=== PATIENT | female | born 1940 | race Caucasian/White ===

== ENCOUNTER 2018-07-10 16:56 | Emergency (ER) | payer MEDICARE ==
[~2018-07-10] VITALS: Ht 167.6 cm; Wt 79.0 kg
[~2018-07-10 16:56] MED LIST: BENADRYL 50MG C50 MG PO; CIPROFLOXACN500 MG PO; MEDDOSEPAK PO; PEPCID20 MG PO
[2018-07-10] MEDS ORDERED: BACTROBAN TOP (18:23)
[2018-07-10] MEDS ORDERED: METRONIDAZOL500 MG PO (18:23)
[2018-07-10] MEDS ORDERED: DOXYCYCLINE100 MG PO (18:23)
[2018-07-10 18:30] VITALS: BP 163/87
== END 2018-07-10 18:30 | disposition home or self-care (01) ==
LOC: ED 16:56
PROC: 0HQNXZZ Repair Left Foot Skin, External Approach (ICD-10-PCS; principal; 2018-07-10)
DX: S91.312A Laceration without foreign body, left foot, initial encounter (principal); W54.0XXA Bitten by dog, initial encounter; Y92.89 Other specified places as the place of occurrence of the external cause; Y93.89 Activity, other specified

== ENCOUNTER 2018-07-13 11:55 | Inpatient (IN) | payer MEDICARE ==
[~2018-07-13] VITALS: Ht 165.1 cm; Wt 78.6 kg
[~2018-07-13 11:55] MED LIST changes: +BACTROBAN TOP; +DOXYCYCLINE100 MG PO; +METRONIDAZOL500 MG PO
--- NOTE | 2018-07-13 12:16 | NUR ---
PT TO ROOM VIA WHEELCHAIR.
--- NOTE | 2018-07-13 12:17 | NUR ---
MLP at bedside to examine pt
--- NOTE | 2018-07-13 12:20 | NUR ---
EDP at bedside to examine pt
--- NOTE | 2018-07-13 12:24 | NUR ---
2 sutures removed by EDP and MLP. Pt tolerated well.
--- NOTE | 2018-07-13 12:25 | NUR ---
REPORT PROVIDED TO KATHLEEN LABOY. CARE RELINQUISHED.
--- NOTE | 2018-07-13 12:25 | NUR ---
Pt updated on POC including being moved to another room d/t higher level of care. Showed understanding. Call nur within reach.
--- NOTE | 2018-07-13 12:30 | NUR ---
Pt to remain in room # 2 per charge nurse. Tech advised to place pt on playground monitor d/t elevated BP. Report given to KATHLEEN Schwartz. Care relinquished at this time.
--- NOTE | 2018-07-13 12:57 | NUR ---
IV ABT INFUSING TO SITE AT [facility]. SITE HEALTHY. PT AWARE OF CURRENT POC.
--- NOTE | 2018-07-13 13:28 | NUR ---
IV ABT CONTINUES. PT ADVISED OF CONTINUED WAIT TIME.
[2018-07-13 13:30] LABS: HEMOGLOBIN 13.6 g/dl (12.0-16.0); MEAN CELL VOLUME 90.3 fL CALC (80.0-100.0); MEAN CORPUSCULAR HGB 28.6 pG CALC (26.0-32.0); MEAN CORPUSCULAR HGB CONC 31.6 g/L CALC (32.0-36.0); RED BLOOD COUNT 4.76 mill/uL (4.20-5.60); RED CELL DISTRI WIDTH 13.9 % (11.5-15.5)
[2018-07-13 13:31] LABS: ANION GAP 14 (6-22 (CALC)); BUN 18 mg/dL (8-23); BUN/CREATININE RATIO 20 (12-20 (CALC)); CARBON DIOXIDE 24 mmol/l (22-30); CHLORIDE 106 mmol/l (95-108); CREATININE 0.9 mg/dL (0.5-1.0); GFR > 60 ML/MIN (>=60 (CALC)); GFR FOR AFR.AMER. > 60 ML/MIN (>=60 (CALC)); NEUT# 5.56 thou/uL (2.00-7.15); POTASSIUM 4.3 mmol/l (3.5-5.1); SODIUM 140 mmol/l (137-146)
[2018-07-13 13:32] LABS: ALBUMIN 4.4 g/dL (3.2-5.0); ALKALINE PHOSPHATASE 75 u/l (38-126); BILIRUBIN, TOTAL 0.4 mg/dL (0.0-1.4); SGOT/AST 20 u/l (9-36); TOTAL PROTEIN 7.1 g/dL (6.3-8.2)
--- NOTE | 2018-07-13 14:48 | NUR ---
PT RESTING , OFFERS NO NEW COMPLAINTS, AWARE OF PENDING ADMISSION, CALL DANIEL WITHIN REACH, MD AWARE OF B/P
--- NOTE | 2018-07-13 15:22 | NUR ---
DECVLINED MORPHINE STATING PAIN IS NOT THAT BAD, REQUESTED SOMETHING MILDER, NOTIFIED NEW ORDERS REC'D AND MEDICATED ORDERED
--- NOTE | 2018-07-13 15:40 | NUR ---
Attempted to call report to [facility]. Silvia byrd she is unavailable at this time and will return call for report
--- NOTE | 2018-07-13 15:45 | NUR ---
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
--- NOTE | 2018-07-13 16:10 | NUR ---
PER VERBAL ORDER , LEFT FOOT WOUND COVERED WITH NON ADHERENT DRSG ADN SECURED WITH ASUNCION AND TAPE, PT TOLERATED W/O INCIDENT,
--- NOTE | 2018-07-13 16:20 | NUR ---
Pt to MS at this time.
--- NOTE | 2018-07-13 16:25 | NUR ---
PT CAME FROM ER. 1X PERSON ASSIST TO SCALE AND THEN TO BED. VS OBTAIN. SAFETY PRECAUTIONS REINFORCED AND CALL LIGHT IN REACH.
[2018-07-13 16:27] VITALS: BP 151/68
--- NOTE | 2018-07-13 18:22 | NUR ---
ASSESSMENT DONE .PT IS A&O X3. PT STATED PAIN IN LEFT FOOT 06/03 DENIES PAIN MEDICATION. LEFT FOOT REDNESS AND WARM TO THE TOUCH. PICTURE TAKEN. RESPS EVEN AND UNLABORED. CALL LIGHT IN REACH.
[2018-07-13 19:27] VITALS: BP 149/76
--- NOTE | 2018-07-13 19:30 | NUR ---
PATIENT RESTING IN BED AT THIS TIME-AWAKE ALERT AND ORIENTEDX3. PATIENT WITH NO COMPLAINTS AT THIS TIME. DRESSING TO LEFT FOOT CDI AT THIS TIME. LEFT FOOT ELEVATED ON PILLOW. SALINE LOCK TO LEFT AC INTACT AND APPEARS HEALTHY AT THIS TIME. SAFETY PRECAUTIONS REINFORCED. CALL LIGHT IN REACH. WILL CONT TO MONITOR.
--- NOTE | 2018-07-14 | NUR ---
PATIENT RESTING IN BED. ANTIBIOTICS HAVE BEEN GIVEN. LEFT FOOT ELEVATED ON PILLOW. PATIENT MEDICATED FOR PAIN WITH ULTRAM 50MG PO FOR PAIN. CALL LIGHTIN REACH. WILL CONT TO MONITOR.
[2018-07-14 04:14] VITALS: BP 119/54
[2018-07-14 05:24] LABS: HEMATOCRIT 37.7 % (37.0-47.0); HEMOGLOBIN 11.9 g/dl (12.0-16.0); IMMATURE GRANULOCYTES 0.3 % (0.0-5.0); MEAN CELL VOLUME 90.6 fL CALC (80.0-100.0); MEAN CORPUSCULAR HGB 28.6 pG CALC (26.0-32.0); MEAN CORPUSCULAR HGB CONC 31.6 g/L CALC (32.0-36.0); NEUT# 4.37 thou/uL (2.00-7.15); RED BLOOD COUNT 4.16 mill/uL (4.20-5.60); RED CELL DISTRI WIDTH 13.9 % (11.5-15.5)
--- NOTE | 2018-07-14 05:29 | NUR ---
PATIENT RESTING IN BED-APPEARS SLEEPING AT THIS TIME. CALL LIGHT IN REACH. WILL CONT TO MONITOR.
[2018-07-14 05:40] LABS: ALKALINE PHOSPHATASE 51 u/l (38-126); AMYLASE 47 u/l (30-110); ANION GAP 12 (6-22 (CALC)); BILIRUBIN, TOTAL 0.3 mg/dL (0.0-1.4); BUN 23 mg/dL (8-23); BUN/CREATININE RATIO 24 (12-20 (CALC)); CARBON DIOXIDE 24 mmol/l (22-30); CHLORIDE 107 mmol/l (95-108); CREATININE 0.9 mg/dL (0.5-1.0); GFR > 60 ML/MIN (>=60 (CALC)); GFR FOR AFR.AMER. > 60 ML/MIN (>=60 (CALC)); LIPASE 127 u/l (23-300); MAGNESIUM 2.1 mg/dL (1.6-2.3); POTASSIUM 4.4 mmol/l (3.5-5.1); SGOT/AST 33 u/l (9-36); SODIUM 138 mmol/l (137-146); TOTAL PROTEIN 5.9 g/dL (6.3-8.2)
[2018-07-14 05:42] LABS: ALBUMIN 3.5 g/dL (3.2-5.0)
[2018-07-14 07:22] VITALS: BP 119/55
--- NOTE | 2018-07-14 08:48 | NUR ---
PT TOOK A SHOWER AND NOW BACK IN BED. ASSESSMENT DONE. PT IS A&O X3. PT STATED PAIN IN LEFT FOOT IS 7/10 BUT IT COMES AND GOES. PT DENIES PAIN MEDICATION AT THIS TIME. LEFT FOOT ELEVATED IN PILLOW. RESPS EVEN AND UNLABORED. PT DENIES ANY NEEDS AT THIS TIME. LEFT FOOT SMALL AMOUNT OF OOZING NOTED AND DRESSING APPLIED. CALL LIGHT IN REACH.
--- NOTE | 2018-07-14 11:16 | NUR ---
PT IS RESTING IN BED USING HER CELL PHONE. PT STATED PAIN IN LEFT FOOT IS 2/10 BUT DENIES PAIN MEDICATION AT THIS TIME. CALL LIGHT IN REACH.
[2018-07-14 15:17] VITALS: BP 103/52
--- NOTE | 2018-07-14 15:20 | NUR ---
PT IS SITTING IN RECLINER WITH LEGS ELEVATED. PT STATED PAIN IN LEFT FOOT 2/ BUT DENIES PAIN MEDICATION OR NEEDS . CALL LIGHT IN REACH.
[2018-07-14 19:10] VITALS: BP 133/71
--- NOTE | 2018-07-14 20:00 | NUR ---
PATIENT RESTING IN BED-AWAKE ALERT AND ORIENTEDX3. PATIENT WITH LEFT FOOT DRESSING INTACT. LEFT FOOT ELEVATED ON PILLOW. SALINE LOCK TO LEFT AC LEAKING AND D/C'ED. NEW IV SITE STARTED TO RIGHT HAND-#22 GAUGE WITH GOOD BLOOD RETURN. NO COMPLAINTS AT THIS TIME. SAFETY PRECAUTIONS REINFORCED. CALL LIGHT IN REACH. WILL CONT TO MONITOR.
--- NOTE | 2018-07-15 | NUR ---
PATIENT RESTING IN BED EATING SNACK. ANTIBIOTICS HAVE FINISHED FOR TONIGHT.PATIENT MEDICATED FOR LEFT FOOT PAIN WITH ULTRAM 50MG PO ORDERED FOR PAIN. LEFT FOOT DRESSING CDI AND LEFT FOOT ELEVATED ON PILLOW. SAFETY PRECAUTIONS REINFORCED. CALL LIGHT IN REACH. WILL CONT TO MONITOR.
[2018-07-15 04:30] VITALS: BP 114/61
--- NOTE | 2018-07-15 04:32 | NUR ---
PATIENT APPEARS SLEEPING AT THIS TIME WITH EYES CLOSED. RESP ARE EVEN AND UNLABORED. LEFT FOOT ELEVATED ON PILLOW. CALL LIGHT IN REACH. WILL CONT TO MONITOR.
[2018-07-15 07:18] VITALS: BP 121/59
--- NOTE | 2018-07-15 08:40 | NUR ---
ASSESSMENT DONE. PT IS A&O X3. PT DENIES PAIN AT THIS TIME. RESPS EVEN AND UNLABORED. LEFT FOOT ELEVATED IN PILLOW. LEFT FOOT DRESSING IN PLACE CDI. PT DENIES ANY NEEDS AT THIS TIME. CALL LIGHT IN REACH.
--- NOTE | 2018-07-15 11:01 | NUR ---
PT IS SITTING IN RECLINER. DR. YADAV AT BEDSIDE TO ASSESS PT AND DISCUSS POC. CALL LIGHT IN REACH.
[2018-07-15] MEDS ORDERED: CIPROFLOXACN500 MG PO (11:32)
--- NOTE | 2018-07-15 14:10 | NUR ---
AT BEDSIDE TO ASSESS PT LEFT FOOT WOUND. MD AT BEDSIDE PERFORMING PROCEDURE NOW.
--- NOTE | 2018-07-15 15:10 | NUR ---
PT IS RESTING IN BED. LEFT FOOT ELEVATED IN PILLOW. PT STATED PAIN IN LEFT FOOT BUT DENIES PAIN MEDICATION AT THIS TIME. CALL LIGHT IN REACH.
[2018-07-15 17:05] VITALS: BP 145/60
[2018-07-15 19:02] VITALS: BP 133/74
--- NOTE | 2018-07-15 19:15 | NUR ---
REPORT RECIEVED BY DAY NURSE. WENT TO PT ROOM PT IS AWAKE IN BED LAYING FLAT. PT DENIES PAIN AT THIS TIME. PT DENIES NEEDS AT THIS TIME. CALL LIGHT WITHIN REACH
--- NOTE | 2018-07-15 20:35 | NUR ---
PT [id number] IN BED W/LIGHTS AND TV ON READING A BOOK. PT ASSESSMENT [id number] AT THIS TIME. LUNG SOUNDS ARE CLEAR, P0T DENIES SOB. 02 ON @2LNC, ABD DIST SOFT NON-TENDER W/ACTIVE BOWEL SOUNDS. NO NOTED EDEMA. WEAK P0EDAL PULSES NOTED. P0T LOCX4 AND AMBULATES TO RESTROOM STEADY GAIT. 900CC OF DARK YELLOW CLEAR URINE ISF1CAMP AT THIS TIME. WILL CONTINUE TO MONITOR, P0T DENIES ANY OTHER NEEDS AT THIS TIME.
--- NOTE | 2018-07-15 21:41 | NUR ---
PT MEDICATED AT THIS TIME AND ASSESSMENT [id number]. DRESSING TO LEFT FOOT IS CDI, PT DENIES PAIN AT THIS TIME. PT AMBULATED TO RESTROOM AND BACK TO BED W/OUT NEED FOR ASSISTANCE. INSTRUCTED TO CALL FOR AMBULATING FOR SAFETY PRECAUTIONS.
--- NOTE | 2018-07-16 00:50 | NUR ---
PT DENIES ANY NEEDS AT THIS TIME. PT AMBULATED TO RESTROOM AND BACK TO BED, STABLE ON FOOT W/OUT ASSISTANCE OR WALKER. PT LOCX3. IV SITE APPEARS HEALTHY AND DRESSING TO LEFT FOOT CDI.
[2018-07-16 04:08] VITALS: BP 112/44
--- NOTE | 2018-07-16 05:05 | NUR ---
ASSESSED PT'S L. FOOT. DRESSING IS DRY AND INTACT. FLUSHED IV. PT REPORTED A BURNING PAIN OF 6/10. CAME BACK AND ADMINISTERED 0.25 MG MORPHINE IV. EDUCATED PT ON PAIN MEDS. TOLD PT THAT IF SHE ASKS FOR MEDICINE BEFORE PAIN GETS TOO BAD IT WILL BE EASILY TREATED WITH ULTRAM.
--- NOTE | 2018-07-16 07:53 | NUR ---
REPORT RECEIEVED FROM KATHLEEN JOSÉ. PT SUPINE IN BED. REPORTS MILD PAIN TO LEFT FOOT, 4 ON SCALE OF 0-10. DRSG TO LEFT FOOT CDI. PAIN MEDICATIONS MS AND ULTRAM DISCUSSED. PT AGREES WITH ULTRAM AT THIS TIME. PLAN OF CARE DISCUSSED. REPORTING OF CONCERNS ENCOURAGED. CALL LIGHT REVIEWED AND IN REACH. PT STATES UNDERSTANDING.
[2018-07-16 07:55] VITALS: BP 104/54
--- NOTE | 2018-07-16 10:30 | NUR ---
DR. YADAV IN TO SEE PT. POSSIBLE DISCHARGE HOME IF OKAY'D BY WOUND CARE DISCUSSED. PT IN AGREEMENT WITH PLAN.
--- NOTE | 2018-07-16 11:11 | NUR ---
DR. LI IN TO SEE PT AT THIS TIME. DRESSING CHANGED PER MD.
[2018-07-16] MEDS ORDERED: LORTAB 5/3255 MG PO (11:43)
== END 2018-07-16 13:24 | disposition home or self-care (01) | DRG 572 ==
LOC: ED 11:55 → ED-I 14:16 → ED 15:05 → MS2 15:06
PROVIDERS: ADMIT Internal Medicine Nephrology; ATTEND Internal Medicine Nephrology
PROC: 0JBR0ZZ Excision of Left Foot Subcutaneous Tissue and Fascia, Open Approach (ICD-10-PCS; principal; 2018-07-15)
DX: L03.116 Cellulitis of left lower limb (principal); S91.352A Open bite, left foot, initial encounter; W54.0XXA Bitten by dog, initial encounter; G62.9 Polyneuropathy, unspecified